=== PATIENT | male | born 1980 | race Two or more races ===

== ENCOUNTER 2019-03-29 11:52 | Emergency (ER) | payer MEDICAID, OTHER ==
[~2019-03-29] VITALS: Ht 172.7 cm; Wt 79.5 kg
[~2019-03-29 11:52] MED LIST: CIP250T PO; HYDR1TAB PO
[2019-03-29 12:10] VITALS: BP 133/92
[2019-03-29] MEDS ORDERED: bacitracin 15gm ointment TP ONE (12:55)
[2019-03-29] MEDS ORDERED: CEPH250T PO (13:40)
[2019-03-29] MEDS ORDERED: LIDOcaine 1% W/epiNEPHrine 1:100,000 20ml vial ONE (14:00)
== END 2019-03-29 14:01 | disposition home or self-care (01) ==
LOC: ER 11:53
DX: S61.541A Puncture wound with foreign body of right wrist, initial encounter (principal); F12.90 Cannabis use, unspecified, uncomplicated; J45.909 Unspecified asthma, uncomplicated; W22.03XA Walked into furniture, initial encounter; Y93.89 Activity, other specified; Y92.89 Other specified places as the place of occurrence of the external cause; Y99.9 Unspecified external cause status
CPT/HCPCS: 10120; 73110; 99284